=== PATIENT | male | born 1985 | race Caucasian/White ===

== ENCOUNTER 2016-06-29 19:57 | Emergency (ER) | payer SELFPAY ==
[~2016-06-29] VITALS: Ht 172.7 cm; Wt 91.8 kg
[~2016-06-29 19:57] MED LIST: AMLO10 PO; AUGM875T PO; BACT800T5 PO; OXYC5 PO; PHEN-426 PO
[2016-06-29 20:02] VITALS: BP 151/97; PULSE 91; RESP 24; TEMP 98.5; O2SAT 94
== END 2016-06-29 21:05 | disposition left against medical advice (07) ==
LOC: PHED 19:57
DX: Z53.21 Procedure and treatment not carried out due to patient leaving prior to being seen by health care provider (principal)
CPT/HCPCS: 99281